=== PATIENT | male | born 1940 | race Caucasian/White ===

== ENCOUNTER 2016-10-29 06:06 | Emergency (ER) | payer OTHER ==
[~2016-10-29] VITALS: Ht 167.6 cm; Wt 116.4 kg
[2016-10-29 06:12] VITALS: PULSE 89; RESP 20; TEMP 98.4; O2SAT 96
[2016-10-29] MEDS ORDERED: ACET-703 PO (06:28)
[2016-10-29] MEDS ORDERED: KETOROLAC TROMETHAMINE 60 MG/2 ML (IM) VIAL IM ONE (06:30)
[2016-10-29] MEDS ORDERED: ORPHENADRINE INJ 60 MG/2 ML AMP IM ONE (06:30)
--- NOTE | 2016-10-29 06:54 | PD ---
HPI Chief Complaint: Back/ Neck Pain or Injury Time Seen by Provider: 06:25 Travel History International Travel<30 days: No Contact w/Intl Traveler<30days: No Traveled to known affect area: No History of Present Illness HPI 76 year-old male presents to the emergency department for complaint of left upper back pain patient states pain is reproducible just at his left inferior scapular region. Patient denies any injury. Patient rates pain as 10 over 10 intensity. Patient states pain awakened him from sleep at 3 AM. Patient reports pain is associated with shortness of breath. Patient denies chest pain. Patient has chronic left shoulder pain and is followed by Dr. Figueroa is his orthopedist. Patient denies any upper extremity or lower extremity numbness tingling or weakness. Patient has had no skin rash. Patient denies fever or chills. No recent long distance travel protracted bedrest her surgical procedure. No history of DVT PE or clotting disorder. Patient does not take blood thinning agent. Patient denies history of CAD hypertension dyslipidemia diabetes or tobaccoism. Patient denies injury or fall. PFSH Past Medical History Narrative Medical High cholesterol pneumonia no tobacco use; nursing notes and medical record reviewed High Cholesterol: Yes Pneumonia: Yes Tetanus Vaccination: > 5 Years Influenza Vaccination: No Past Surgical History Other Surgery: Yes (NASAL SURGERY, LEFT JAW FX REPAIR WITH PLATE: 1975) Social History Alcohol Use: No Tobacco Use: No (QUIT 1985) Substance Use: No Allergies-Medications (Allergen,Severity, Reaction): Coded Allergies: No Known Allergies (Verified , 10/29/16) Reported Meds & Prescriptions Reported Meds & Active Scripts Active Reported Tylenol Extra Strength (Acetaminophen) 500 Mg Tab 1,000 Mg PO Q6H PRN Review of Systems Except as stated in HPI: all other systems reviewed are Neg General / Constitutional: No: Fever, Chills Cardiovascular: No: Chest Pain or Discomfort Respiratory: Positive: Shortness of Breath, Pleuritic Pain Gastrointestinal: No: Nausea, Vomiting, Abdominal Pain Genitourinary: No: Decreased Urinary Output Musculoskeletal: Positive: Pain, No: Myalgias, Arthralgias Skin: No Rash (back) Neurologic: No: Weakness, Paresthesia Psychiatric: No: Anxiety Hematologic/Lymphatic: No: Lymph Node Enlargement Physical Exam Narrative GENERAL: Well-developed well-nourished male in no acute respiratory distress SKIN: Warm and dry. HEAD: Normocephalic. EYES: No scleral icterus. No injection or drainage. NECK: Supple, trachea midline. No JVD or lymphadenopathy. CARDIOVASCULAR: Regular rate and rhythm without murmurs, gallops, or rubs. RESPIRATORY: Breath sounds equal bilaterally. No accessory muscle use. GASTROINTESTINAL: Abdomen soft, non-tender, nondistended. MUSCULOSKELETAL: No cyanosis, or edema. BACK: Tender to palpation along the medial inferior ridge of the left scapula no redness no induration no vesicular rash without obvious deformity. No tenderness to direct palpation along the thoracic or lumbar spine. No CVA tenderness. Data Data Last Documented VS Vital Signs Date Time Temp Pulse Resp B/P Pulse Ox O2 Delivery O2 Flow Rate FiO2 10/29/16 06:52 18 10/29/16 06:12 98.4 89 96 Orders Chest, Single Ap (10/29/16 ) Ketorolac Inj (Toradol Inj) (10/29/16 06:30) Orphenadrine Inj (Norflex Inj) (10/29/16 06:30) Urinalysis - C+S If Indicated (10/29/16 06:25) Complete Blood Count With Diff (10/29/16 06:54) Basic Metabolic Panel (Bmp) (10/29/16 06:54) D-Dimer (10/29/16 06:54) ^ Saline Lock (10/29/16 06:54) Electrocardiogram (10/29/16 ) Troponin I (10/29/16 06:54) MDM Medical Decision Making Medical Screen Exam Complete: Yes Emergency Medical Condition: Yes Medical Record Reviewed: Yes Differential Diagnosis Back pain, atypical chest pain/ACS, PE, pleurisy, musculoskeletal pain Narrative Course Patient reporting marked pain therefore administered Toradol 60 mg IM and Norflex 60 mg IM with imaging of the chest ordered; patient also reported to have CBC basic metabolic panel troponin d-dimer and EKG performed in view of pleuritic back pain associated with shortness of breath and awakened him from sleep at 3 AM. Suspect at least a component of musculoskeletal pain of etiology of patient's presentation however does need further evaluation to evaluate for possible cardiovascular etiology or PE. @0 700 patient's care signed over to oncoming physician Dr. Roberto Bah,[place] MD October 29, 2016 06:54
[2016-10-29 07:20] LABS: AUTOMATED NEUTROPHIL # 3.8 TH/MM3 (1.8-7.7); BASOPHIL % 0.6 % (0.0-2.0); EOSINOPHIL # 0.2 TH/MM3 (0-0.4); EOSINOPHIL % 3.1 % (0.0-4.0); HEMO FLAGS DIFF FINAL; LYMPH % 21.7 % (9.0-44.0); LYMPHOCYTE # 1.2 TH/MM3 (1.0-4.8); MEAN CELL VOLUME 82.2 FL (80.0-100.0); MEAN CORPUSCULAR HEMOGLOBIN 26.9 PG (27.0-34.0); MEAN CORPUSCULAR HGB CONC 32.7 % (32.0-36.0); MONO % 8.8 % (0.0-8.0); NEUT % 65.8 % (16.0-70.0); PLATELET COUNT 270 TH/MM3 (150-450); RED BLOOD COUNT 5.72 MIL/MM3 (4.50-5.90); RED CELL DISTRIBUTION WIDTH 13.5 % (11.6-17.2); WHITE BLOOD COUNT 5.7 TH/MM3 (4.0-11.0)
[2016-10-29 07:26] LABS: CHLORIDE 103 MEQ/L (98-107); POTASSIUM 3.7 MEQ/L (3.5-5.1); SODIUM (NA) 139 MEQ/L (136-145)
--- NOTE | 2016-10-29 07:27 | RADHPO ---
EXAM DATE/TIME: 10/29/2016 07:01 [facility] COMPARISON: No previous studies available for comparison. INDICATIONS : Posterior left side rib pain x a few hours, no known injury. Short of breath. MEDICAL HISTORY : None. SURGICAL HISTORY : None. ENCOUNTER: Initial ACUITY: 1 day PAIN SCORE: 10/10 LOCATION: Left posterior ribs FINDINGS: A single view of the chest demonstrates the lungs to be symmetrically aerated without evidence of mas s, infiltrate or effusion. Minimal basilar atelectasis. The cardiomediastinal contours are unremarka ble. Osseous structures are intact. CONCLUSION: 1. Minimal basilar atelectasis. Angus Maldonado MD on October 29, 2016 at 7:23 Board Certified Radiologist. This report was verified electronically.
[2016-10-29 07:29] LABS: ANION GAP 9 MEQ/L (5-15); BICARBONATE 26.7 MEQ/L (21.0-32.0)
[2016-10-29 07:30] LABS: BLOOD UREA NITROGEN 20 MG/DL (7-18)
[2016-10-29 07:33] LABS: GLOMERULAR FILTRATION RATE 90 ML/MIN (>89)
--- NOTE | 2016-10-29 08:26 | PD ---
Physical Exam Date Seen by Provider: October 29, 2016 Time Seen by Provider: 08:24 Narrative 76-year-old male came to the emergency room with history of left subscapular pain radiating to his front of the chest. Pain sounds pleuritic in nature. Woke patient up from sleep. Patient was seen by the previous ER physician. Please refer to her history and physical for additional details. Sign out was to follow-up on the blood test results. As per the previous ER physician her suspicion for coronary artery disease was less. Patient has history of arthritis and she thought this could be related to the arthritis of the blood work came back negative. However there was a d-dimer ordered which is elevated. Hence patient is currently waiting to get a pulmonary angiogram. I have updated about this progress to the patient. Waiting for the CT to be done and resulted. Patient says that since he received morphine he is able to breathe little better. Data Data Last Documented VS Vital Signs Date Time Temp Pulse Resp B/P Pulse Ox O2 Delivery O2 Flow Rate FiO2 10/29/16 09:43 70 16 158/90 96 Orders Chest, Single Ap (10/29/16 ) Ketorolac Inj (Toradol Inj) (10/29/16 06:30) Orphenadrine Inj (Norflex Inj) (10/29/16 06:30) Complete Blood Count With Diff (10/29/16 06:54) Basic Metabolic Panel (Bmp) (10/29/16 06:54) D-Dimer (10/29/16 06:54) ^ Saline Lock (10/29/16 06:54) Electrocardiogram (10/29/16 ) Troponin I (10/29/16 06:54) Ct Pulmonary Angiogram (10/29/16 ) Iohexol 350 Inj (Omnipaque 350 Inj) (10/29/16 08:44) Levofloxacin (Levaquin) (10/29/16 09:30) Labs Laboratory Tests Test 10/29/16 07:08 White Blood Count 5.7 TH/MM3 Red Blood Count 5.72 MIL/MM3 Hemoglobin 15.4 GM/DL Hematocrit 47.0 % Mean Corpuscular Volume 82.2 FL Mean Corpuscular Hemoglobin 26.9 PG Mean Corpuscular Hemoglobin 32.7 % Concent Red Cell Distribution Width 13.5 % Platelet Count 270 TH/MM3 Mean Platelet Volume 7.2 FL Neutrophils (%) (Auto) 65.8 % Lymphocytes (%) (Auto) 21.7 % Monocytes (%) (Auto) 8.8 % Eosinophils (%) (Auto) 3.1 % Basophils (%) (Auto) 0.6 % Neutrophils # (Auto) 3.8 TH/MM3 Lymphocytes # (Auto) 1.2 TH/MM3 Monocytes # (Auto) 0.5 TH/MM3 Eosinophils # (Auto) 0.2 TH/MM3 Basophils # (Auto) 0.0 TH/MM3 CBC Comment DIFF FINAL Differential Comment D-Dimer Quantitative (PE/DVT) 0.73 MG/L FEU Sodium Level 139 MEQ/L Potassium Level 3.7 MEQ/L Chloride Level 103 MEQ/L Carbon Dioxide Level 26.7 MEQ/L Anion Gap 9 MEQ/L Blood Urea Nitrogen 20 MG/DL Creatinine 0.83 MG/DL Estimat Glomerular Filtration 90 ML/MIN Rate Random Glucose 101 MG/DL Calcium Level 8.7 MG/DL Troponin I LESS THAN 0.02 NG/ML MDM Supervised Visit with AISHA: No Narrative Course 9:[address] pulmonary angiogram does not show any PE. There is bilateral scattered nodules however. Patient will require a repeat CAT scan in 3-6 months. There is a groundglass opacity radiologist mentioned in the angular lobe which could coincide with his pain. I have given him a dose of Levaquin and will treated as a pneumonia. Patient will be discharged home. Diagnosis Primary Impression: Pneumonia Qualified Code: J18.1 - Pneumonia of left lower lobe due to infectious organism Additional Impressions: Pleuritic chest pain Lung nodules Referrals: Primary Care Physician 2 days Additional Instruction: Vasotec 10 to the ER if the condition worsens or any other new concerns. Take the medication as per the prescription direction. You could take Motrin/ ibuprofen/Advil/Aleve for your pain. Follow-up with primary care in couple days. The CAT scan showed multiple lung nodules. He would require a repeat CAT scan in 3-6 months. Please have your primary care order one as an outpatient. Med/Other Pt SpecificInfo: Prescription(s) given Scripts Levofloxacin (Levaquin)500 Mg Uvr680 Mg PO DAILY #10 TAB Ref 0 Prov:Graciela Mejia MD 10/29/16 Disposition: 01 DISCHARGE HOME Condition: Stable Graciela Mejia MD October 29, 2016 08:26 Graciela Mejia MD October 29, 2016 08:26
[2016-10-29] MEDS ORDERED: IOHEXOL 350 MG/ML 10 ML VIAL (for RAD DIAG) IV ONE (08:44)
--- NOTE | 2016-10-29 09:16 | RADHPO ---
EXAM DATE/TIME: 10/29/2016 08:22 [facility] COMPARISON: No previous studies available for comparison. INDICATIONS : Patient complains of SOB and left upper back pain. IV CONTRAST: 46 cc Omnipaque 350 (iohexol) IV Injection Site: Rt AC Lot: [id number] Exp Date: Jul 2019 Lot: Exp Date : RADIATION DOSE: 21.81 CTDIvol (mGy) MEDICAL HISTORY : Hypercholesterolemia. SURGICAL HISTORY : None. ENCOUNTER: Initial ACUITY: 1 day PAIN SCALE: 10/10 LOCATION: Left upper chest TECHNIQUE: Volumetric scanning of the chest was performed using a pulmonary embolism protocol MIP images were re constructed. Using automated exposure control and adjustment of the mA and/or kV according to patien t size, radiation dose was kept as low as reasonably achievable to obtain optimal diagnostic quality images. FINDINGS: Breathing motion degraded. PULMONARY ARTERIES: No filling defects are seen in the pulmonary arteries through the segmental level. LUNGS: A total of 5 nodular densities are observed. The largest involves the posterior medial left upper lob e adjacent to the major fissure. This measures 9 mm. The remaining nodules are 4-5 mm in diameter. 2 are located within the right upper lobe wall and within the right middle lobe, and one within the divya gula. Dependent atelectasis is seen bilaterally. Groundglass opacities are seen within the lingula an d left lower lobe. PLEURAE: There is no pleural thickening or pleural effusion. MEDIASTINUM: The heart is mildly enlarged. Coronary artery and aortic atherosclerotic calcifications are seen. Pul monary arteries are normal in caliber. No adenopathy. MUSCULOSKELETAL: Within normal limits for patient age. MISCELLANEOUS: The visualized upper abdominal organs demonstrate no acute abnormality. CONCLUSION: 1. No pulmonary emboli. 2. Multiple bilateral pulmonary nodules. The largest measures 9 mm within the left upper lobe. These are nonspecific in their CT appearance. Current guidelines suggest a repeat CT [facility] 3. Groundglass opacities involving the lingula and left lower lobe. This is nonspecific. This could r elate to pulmonary edema but infectious etiology could have a similar appearance. Ag Combs Jr., MD on October 29, 2016 at 9:05 Board Certified Radiologist. This report was verified electronically.
[2016-10-29] MEDS ORDERED: LEVOFLOXACIN 500 MG TAB PO ONE (09:30)
[2016-10-29] MEDS ORDERED: LEVA500T PO (09:33)
[2016-10-29 09:43] VITALS: BP 158/90
--- NOTE | 2016-10-29 11:46 | EKG ---
Date Performed: 10/29/2016 Time Performed: 07:05:32 PTAGE: 76 years EKG: Sinus rhythm Normal ECG PREVIOUS TRACING : 05/15/2005 07.43 No significant change from previous tracing noted. DOCTOR: Kris Mcguire Interpretating Date/Time 10/29/2016 11:45:28
== END 2016-10-29 09:55 | disposition home or self-care (01) ==
LOC: PHED 06:06
DX: J18.1 Lobar pneumonia, unspecified organism (principal); R91.8 Other nonspecific abnormal finding of lung field; E78.00 Pure hypercholesterolemia, unspecified
CPT/HCPCS: 71010; 71275; 80048; 84484; 85025; 85379; 93005; 96372; 99285; J1885; J2360; Q9967

== ENCOUNTER 2017-07-29 13:37 | Day surgery (SDC) | payer OTHER ==
[~2017-07-29 13:37] MED LIST: ACET-703 PO; LEVA500T PO
[2017-07-29] MEDS ORDERED: IOHEXOL 350 MG/ML 100 ML BTL (for Cath Lab) OTHER ONE (13:38)
[2017-07-29 14:08] VITALS: BP 128/64; PULSE 69; RESP 22; TEMP 98.2; O2SAT 94
[2017-07-29] MEDS ORDERED: ASPI325T27 PO (14:15)
[2017-07-29] MEDS ORDERED: TAMS0.4C4 (14:15)
[2017-07-29] MEDS ORDERED: METO50TA PO (14:15)
[2017-07-29] MEDS ORDERED: ISOS10TA PO (14:15)
[2017-07-29 14:35] LABS: AUTOMATED NEUTROPHIL # 4.1 TH/MM3 (1.8-7.7); BASOPHIL # 0.1 TH/MM3 (0-0.2); EOSINOPHIL # 0.1 TH/MM3 (0-0.4); EOSINOPHIL % 1.8 % (0.0-4.0); HEMATOCRIT 44.9 % (39.0-51.0); HEMOGLOBIN 15.3 GM/DL (13.0-17.0); LYMPH % 31.6 % (9.0-44.0); LYMPHOCYTE # 2.3 TH/MM3 (1.0-4.8); MEAN CELL VOLUME 80.8 FL (80.0-100.0); MEAN CORPUSCULAR HEMOGLOBIN 27.6 PG (27.0-34.0); MEAN CORPUSCULAR HGB CONC 34.2 % (32.0-36.0); MEAN PLATELET VOLUME 7.5 FL (7.0-11.0); MONO % 8.1 % (0.0-8.0); MONOCYTE # 0.6 TH/MM3 (0-0.9); NEUT % 57.5 % (16.0-70.0); PLATELET COUNT 325 TH/MM3 (150-450); RED BLOOD COUNT 5.56 MIL/MM3 (4.50-5.90); WHITE BLOOD COUNT 7.2 TH/MM3 (4.0-11.0)
[2017-07-29 14:44] LABS: PROTHROMBIN TIME - PATIENT 10.2 SEC (9.8-11.6)
[2017-07-29 15:19] LABS: BICARBONATE 24.3 MEQ/L (21.0-32.0); CALCIUM 8.6 MG/DL (8.5-10.1); CREATININE 0.93 MG/DL (0.60-1.30)
[2017-07-29] MEDS ORDERED: HEPARIN-NS/PF INJ 1,000 ML ONE (15:56)
[2017-07-29] MEDS ORDERED: HEPARIN SODIUM - IV 10,000 UNITS/10 ML VIAL ONE (15:56)
[2017-07-29] MEDS ORDERED: VERAPAMIL HCL 5 MG/2 ML VIAL ONE (15:56)
[2017-07-29] MEDS ORDERED: NITROGLYCERIN INJ 5 ML ONE (15:56)
[2017-07-29] MEDS ORDERED: MIDAZOLAM HCL 2 MG/2 ML VIAL ONE ×2 (16:08→16:44)
[2017-07-29] MEDS ORDERED: TIROFIBAN INFUSION INJ 250 ML IV ONE (16:38)
[2017-07-29] MEDS ORDERED: TICAGRELOR 90 MG TAB PO ONE (16:53)
[2017-07-29] MEDS ORDERED: SODIUM CHLOR 0.9% 1000 ML INJ 1,000 ML IV SCH (17:01)
[2017-07-29] MEDS ORDERED: TIROFIBAN INFUSION INJ 250 ML IV SCH (17:01)
--- NOTE | 2017-07-29 17:06 | CATHPROC ---
fishfishme HIS Report Study Information Study Number Admission Scheduled Start Study Start [id number] Jul 29 2017 1:37PM 07/29/2017 Jul 29 2017 3:54PM Study Type [place] Service Left/Possible PCI Cardiac Catheterization Admit Source Facility Department Other [facility] - Respiratory Therapist Physician and Clinical Staff Initial Kris Mendes Sound Truck Operator Yaya RN, Zander Sound Truck OperatorBalwinder SinghRN Recorder Sadie Nowak,OIL WELL SERVICE UNIT OPERATOR TECH2 Scrub Genet Marie,RT(R) Procedures Performed Procedure Location (Site) Vessel Name Coronary Angiograms LCA Left Coronary Coronary Angiograms RCA Right Coronary Drug Eluting Inflatio CIRC Mid CIRC LV Gram-hand inj. LV LV Ventricle PTCA CIRC Mid CIRC Wire insertion Radial (right) Radial Art. Equipment Time Outside Industrial Sales Representative Description Size Mfg Part Number Used/Scraped [id number] 16:41 [employer] WIRE, ASAHI PROWATER 180CM 180CM Used *[id number] TRANSDUCER, TRUWAVE [id number] 16:30 GARCIA PAVON * Used W/STOCKCOCK *[id number] *[id number] *[id number] 16:30 MALLINCKRODT SYRINGE, ANGIOMAT 150ML 150ML *[id number] Used 2S NoiseFree CONCEPT DRAPE, RADIAL FEMORAL FULL 16:30 * [id number] *[id number] Used DEVELOPMENT BODY [id number] 16:30 [employer] INDUSTRIES PACK, CCL CUSTOM * Used *[id number] 16:30 Brainlike SUPPORT, ARTERIAL ADULT 75069 *[id number] Used [id number] 16:30 [employer] PACER PEN, SKIN DUAL W/ RULER * Used *[id number] 16:44 MEDTRONIC BALLOON, 3.0 X 15MM EUPHORA 15MM Used *[id number] 16:47 MEDTRONIC STENT, 3.5 15MM ANGELINA 3.5 15MM Used *[id number] 16:44 Mebelrama 30 JOEY INDEFLATOR Used *[id number] BAND, RADIAL COMPRESSION TR [id number] 16:55 [employer] MEDICAL 29CM Used LARGE 29 *[id number] SHEATH, FR6 RADIAL PRELUDE 16:30 Mebelrama FR 6 [id number] Used EASE 11CM [id number] 16:30 Mebelrama WIRE, EXCHANGE 260CM 3MMJ 260CM Used *[id number] 16:30 NAMIC MANIFOLD, 4 PORT * Used *[id number] 16:30 NYCOMED OMNIPAQUE, 350 MG, 150ML 150ML [id number] Used [id number] 16:30 [employer] BLANKET,WARM AIR CCL * Used *[id number] CATHETER, FR5 OPTITORQUE [id number] 16:31 TERUMO [employer]ICAL FR 5 Used RADIAL TIG 4.0 *[id number] Equipment Model, Serial, Lot Number and Expiration Data Description Model Number Serial Number Lot Number Expiration Date STENT, 3.5 15MM ANGELINA [id number] 12-24-2018 History: Allergies Allergy Reaction No Known Allergies History: Risk Factors Family History of Hypertension Dyslipidemia Previous SD Previous Heart Failure Premature CAD No No Yes No No Prior Valve Prior PCI Prior CABG Surgery No No No Cerebrovascular Peripheral Artery Chronic Lung On Dialysis Diabetes Disease Disease Disease No No No No No History: Stress Tests Stress or Imaging Studies Performed No History: Other Current Smoker Method Quit Packs a Day Years Used Pack Years No Cigarettes 30 Years Ago 1 25 25 Labs Hgb (g/dl) Hct (%) RBC (MIL/MM3) WBC (l/cumm) Platelets (thousands) 11.60-17.00 35.00-51.00 4.00-5.90 4.00-11.00 150.00-450.00 15.3 44.9 5.5 7.2 325 Glucose (mg/dl) BUN (mg/dl) Creatinine (mg/dl) BUN:Creatinine (1:x) 74.00-106.00 7.00-18.00 0.50-1.30 10.00-20.00 94 17 0.9 18.9 Na (meq/l) K (meq/l) Cl (meq/l) CO2 (mmol/L) Ca (mg/dl) 136.00-145.00 3.50-5.10 98.00-107.00 21.00-32.00 8.50-10.10 136 4.4 104 24.3 8.6 PT (sec) PTT (sec) INR (PTT:PT) 9.80-11.60 24.30-30.10 0.90-1.10 10.2 29.9 1 CPK-MB (ng/ML) 0.50-3.60 Not Drawn Medication Medication Total Dose (Bolus/Oral) Medication Total Dosage/Unit 1% XYLOCAINE 10 mL AGGRASTAT BOLUS 56 mL BRILINTA 180 mg FENTANYL 50 mcg HEPARIN 8000 units RADIAL COCKTAIL 5 mL (Bolus) VERSED 4 mg Medications (Bolus/Oral) Medication Time Given Dosage/Unit Administered By Reason VERSED 07/29/2017 4:24:07 PM 2 mg Balwinder Lou 2 mg VERSED given in lab by Balwinder Lou RN in Left Hand via Peripheral IV. Ordered by Kris Mcguire . FENTANYL 07/29/2017 4:25:22 PM 50 mcg Balwinder Lou 50 mcg FENTANYL given in lab by Balwinder Lou RN in Left Hand via Peripheral IV. Ordered by Mulugeta Mcguire. 1% XYLOCAINE 07/29/2017 4:26:56 PM 10 mL Kris Mcguire 10 mL 1% XYLOCAINE given in lab by Kris Mcguire in Right Radial via Subcutaneous. Ordered by Mulugeta Mcguire. Ntg 200mcg Verapamil 2.5mg Heparin RADIAL COCKTAIL 07/29/2017 4:29:14 PM 5 mL (Bolus) Kris Mcguire 2500U 5 mL (Bolus) RADIAL COCKTAIL given in lab by Kris Mcguire in Right Radial via Radial. Using [Solution Name]. Ordered by Kris Mcguire. Reason: Ntg 200mcg Verapamil 2.5mg Heparin 2500U. HEPARIN 07/29/2017 4:37:29 PM 8000 units Balwinder Lou 8000 units HEPARIN given in lab by Balwinder Lou RN in Left Hand via Peripheral IV. Ordered by Kris Mcguire. AGGRASTAT BOLUS 07/29/2017 4:39:49 PM 56 mL Balwinder Lou 56 mL AGGRASTAT BOLUS given in lab by Balwinder Lou RN in Left Hand via Peripheral IV. Ordered by Kris Agosto. VERSED 07/29/2017 4:46:11 PM 2 mg Balwinder Lou 2 mg VERSED given in lab by Balwinder Lou RN in Left Hand via Peripheral IV. Ordered by Kris Mcguire . BRILINTA 07/29/2017 5:00:29 PM 180 mg Balwinder Lou 180 mg BRILINTA given in lab by Balwinder Lou RN via Oral. Ordered by Kris Mcguire. Medication (Drip) Medication Time Given Dosage/Unit Concentration/Unit Diluent (ml) Solution AGGRASTAT DRIP 07/29/2017 4:47:34 PM 0.15 mcg/kg/min 12.5 mg 250 NaCl .9 0.15 mcg/kg/min AGGRASTAT DRIP given in lab by Balwinder Lou, RN in Left Hand via Peripheral IV. Pump /Drip Flow = 20.38 ml/hr using NaCl .9 with a concentration of 12.5 mg in 250 ml. Ordered by Kris Mcguire. IV Solutions 07/29/2017 3:56:58 PM 50 mL (IV) NaCl .9 Patient arrived on IV Solutions in Left Hand via Peripheral IV. Pump/Drip Flow using NaCl .9. Initial Case Assessment Cardiovascular HR Rhythm NIBP Chest Pain 65 sr 120/75 0 Edema Present Skin color Skin None Normal Warm Dry Circulatory - Right Pulses Dorsalis Pedis Femoral Radial 2 2 2 Scale (0,1,2,3,4,d) Circulatory - Left Pulses Dorsalis Pedis Femoral Radial 1 Scale (0,1,2,3,4,d) Neurological State Oriented to time-place- Alert Moves all extremities person Respiration - General Respiration Rate SpO2 (%) (B/min) 12 95 Final Case Assessment Cardiovascular HR Rhythm NIBP Chest Pain 69 sr 113/65 0 Circulatory - Right Pulses Dorsalis Pedis Femoral Radial 2 2 2 Scale (0,1,2,3,4,d) Scale (0,1,2,3,4,d) Neurological State Oriented to time-place- Alert person Respiration - General Respiration Rate SpO2 (%) (B/min) 18 93 Chronological Log Time Study Chronological Log 15:54:31 Patient arrived via Bed. 15:54:36 Patient Name, D.O.B, / Armband Verified By R.N. 15:56:41 Consent signed by the physician and the patient and verified by the Respiratory Therapist staff. 15:56:42 Pre-op and post- op instructions given; patient acknowledges understanding of instructions. 15:56:42 Verbal Stimulation=2 Physical Stimulation=2 Airway=2 Respiration=2 TOTAL=8. (0=absent, 1=li mited, 2=present) 15:56:44 Presedation assessment performed by Respiratory Therapist RN. 15:56:50 Allens test performed on the right radial and ulnar artery. 15:56:53 Patient has been NPO for More than 6Hrs. 15:56:54 Skin Breakdown-rash noted in groin area 15:56:55 Teo Prominences Protected 15:56:57 A # 20 IV was noted in the Hand (left). Grade = 0 15:56:58 Patient arrived on IV Solutions in Left Hand via Peripheral IV. Pump/Drip Flow using NaCl . 9. 15:56:59 History and physical on the chart or being dictated. Assessment: Initial Case, HR=65 BPM, Rhythm=sr, EXXR=537/75 mmhg, Chest Pain=0, Edema=None, Col or=Normal, Skin = Warm, Dry Right Pulses: Wang Ped=2, Femoral=2, Radial=2 16:03:06 Left Pulses: Wang Ped=1 Neurological: State=Alert, Ox3, MARSHALL Respiration: Resp=12 B/min, SpO2=95 % Vitals capture started with the following parameters, Patient=Adult, Interval=5 min, Initial Pr xkutwx=081 mmHg, 16:03:28 Deflation Rate=5 mmHg, Cuff placed on Left Arm 16:04:07 HR=65 bpm, MYBR=626/75 mmhg, SpO2=95.0 %, Resp=20 B/min 16:08:28 Reference ECG taken 16:09:08 HR=64 bpm, QFWV=889/71 mmhg, SpO2=94 %, Resp=21 B/min, Pain=0, Torres=2 16:14:07 HR=65 bpm, YHAK=774/74 mmhg, SpO2=97.0 %, Resp=12 B/min 16:15:18 Right groin and right wrist prepped with 2% chlorhexidine, and draped after a 3 min. waitin g time. 16:19:08 HR=67 bpm, SSJM=753/74 mmhg, SpO2=96.0 %, Resp=19 B/min 16:19:45 Pressure channel 1 zeroed. 16:20:17 paged 16:21:11 responded 16:23:36 arrived. 16:24:07 2 mg VERSED given in lab by Balwinder Lou, RN in Left Hand via Peripheral IV. Ordered by Kris Agosto. 16:24:13 HR=68 bpm, BXQO=877/74 mmhg, SpO2=93.0 %, Resp=20 B/min 16:25:22 50 mcg FENTANYL given in lab by Balwinder Lou, RN in Left Hand via Peripheral IV. Ordered b y Kris Mcguire. Time Out. Correct patient, correct procedure, correct physician, power injector not loaded with contrast with surgical 16:26:37 team present. Time Out Concurred by MD and individual staff in procedure. 16:26:56 Case Start 16::56 10 mL 1% XYLOCAINE given in lab by Kris Mcguire in Right Radial via Subcutaneous. Ordered b y Kris Mcguire. 16:27:44 Access site was Radial Artery. Right A SHEATH, FR6 RADIAL PRELUDE EASE 11CM FR 6 was advanced into the Radial (right) using the Perc utaneous 16:28:46 technique. 16:29:10 HR=69 bpm, JLHF=707/72 mmhg, SpO2=93.0 %, Resp=20 B/min 5 mL (Bolus) RADIAL COCKTAIL given in lab by Kris Mcguire in Right Radial via Radial. Using [So lution Name]. Ordered 16:29:14 by Kris Mcguire. Reason: Ntg 200mcg Verapamil 2.5mg Heparin 2500U. Recorded Pressure: Ao, HR=70, Condition=Condition 1 16:31:39 (Aorta) Ao 105/60/79 16:31:55 The LCA was injected and visualized at various angles. OMNIPAQUE, 350 MG, 150ML 150ML used . 16:34:13 HR=76 bpm, PDBR=259/64 mmhg, SpO2=89 %, Resp=17 B/min 16:34:51 The RCA was injected and visualized at various angles. OMNIPAQUE, 350 MG, 150ML 150ML used . After removing the current catheter a XB 3.5 GUIDE CATHETER FR 6 was advanced over a WIRE, EXCH OSEI 260CM 16:35:16 3MMJ 260CM. 16:37:29 8000 units HEPARIN given in lab by Balwinder Lou, RN in Left Hand via Peripheral IV. Ordere d by Kris Mcguire. 16:38:58 The LCA was injected and visualized at various angles. OMNIPAQUE, 350 MG, 150ML 150ML used . 16:39:10 HR=70 bpm, SFDD=221/63 mmhg, SpO2=92.0 %, Resp=18 B/min 16:39:20 A WIRE, ASAHI PROWATER 180CM 180CM was inserted via Radial (right). 16:39:49 56 mL AGGRASTAT BOLUS given in lab by Balwinder Lou RN in Left Hand via Peripheral IV. Ord ered by Kris Mcguire. 16:43:13 Activated Clotting Time Drawn 16:43:15 A BALLOON, 3.0 X 15MM EUPHORA 15MM was inserted over WIRE, ASAHI PROWATER 180CM 180CM via t he CIRC Mid. 16:44:11 HR=66 bpm, HDRZ=800/68 mmhg, SpO2=93 %, Resp=18 B/min A BALLOON, 3.0 X 15MM EUPHORA 15MM over a WIRE, ASAHI PROWATER 180CM 180CM in the CIRC Mid was inflated 16:44:17 using a 30 JOEY INDEFLATOR at 4 joey for 20 sec. A BALLOON, 3.0 X 15MM EUPHORA 15MM over a WIRE, ASAHI PROWATER 180CM 180CM in the CIRC Mid was inflated 16:44:52 using a 30 JOEY INDEFLATOR at 13 joey for 30 sec. 16:45:37 Balloon Removed. A STENT, 3.5 15MM ANGELINA 3.5 15MM was advanced through a XB 3.5 GUIDE CATHETER FR 6 over a WIRE, ASAHI 16:45:56 PROWATER 180CM 180CM. 16:46:11 2 mg VERSED given in lab by Balwinder Lou RN in Left Hand via Peripheral IV. Ordered by Kris Agosto. 0.15 mcg/kg/min AGGRASTAT DRIP given in lab by Balwinder Lou RN in Left Hand via Peripheral IV . Pump/Drip Flow = 16:47:34 20.38 ml/hr using NaCl .9 with a concentration of 12.5 mg in 250 ml. Ordered by Kris Mcguire. A STENT, 3.5 15MM ANGELINA 3.5 15MM was deployed using a 30 JOEY INDEFLATOR at 14 atmospheres for 30 seconds in 16:47:48 the CIRC Mid. 16:48:01 Delivery device removed 16:49:12 HR=70 bpm, XHPX=818/63 mmhg, SpO2=93.0 %, Resp=18 B/min 16:49:30 Wire removed After removing the current catheter a MPA-2 INFINITI CATHETER FR 6 was advanced over a WIRE, EX CHANGE 260CM 16:50:06 3MMJ 260CM. Recorded Pressure: LV, HR=73, Condition=Condition 1 16:52:02 (Left Ventricle) LV 116/8/21 16:52:23 The LV was manually injected with 10 cc's and visualized. OMNIPAQUE, 350 MG, 150ML 150ML us ed. Recorded Pressure: LV, Ao, HR=68, Condition=Condition 1 16:52:30 (Left Ventricle) LV 107/6/26, (Aorta) Ao 110/56/78 16:53:13 Catheter was removed 16:53:19 Case End 16:54:14 HR=69 bpm, HLXX=131/65 mmhg, SpO2=93.0 %, Resp=18 B/min Radial Compression Device Used. 16 mLs of air placed in BAND, RADIAL COMPRESSION TR LARGE 29 29 CM. Affected 16:55:07 hand 96 % O2 saturation. 16:57:12 ACT (Normal Range 90-180) = 311 16:59:23 Vitals capture stopped. 17:00:29 180 mg BRILINTA given in lab by Balwinder Lou, RN via Oral. Ordered by Kris Mcguire. Assessment: Final Case, HR=69 BPM, Rhythm=sr, KJHU=780/65 mmhg, Chest Pain=0 Right Pulses: Wang Ped=2, Femoral=2, Radial=2 17:06:38 Neurological: State=Alert, Ox3 Respiration: Resp=18 B/min, SpO2=93 % 17:07:33 Patient moved to bed 17:09:22 Patient transported to DOCU. End Study - Contrast Media Used In Study Contrast Total Opened (mL) Total Used (mL) Total Wasted (mL) Omnipaque 80 80 0 End Study - Maximum Contrast Load Max Contrast Load (mL) 628.8 End Study - Radiation Exposure Fluoro Time (minutes) 6.8 End Study - Sheaths Sheaths Pulled By Sheath Hold Time (min) Genet Marie End Study - Patient Disposition Complications Transferred To Interventional Outcome No Telemetry Bed successful
[2017-07-29] MEDS ORDERED: MISC INFORMATION XX ONE (17:15)
[2017-07-29] MEDS ORDERED: TEMAZEPAM 15 MG CAP PO PRN (17:15)
--- NOTE | 2017-07-29 18:28 | MA ---
cc: KRIS TRAN M.D. DATE 07/29/2017 PROCEDURE Left heart catheterization, selective coronary angiography, left ventriculography, angioplasty and stent of the proximal left circumflex. PROCEDURE NOTE The patient was brought to the cardiac catheterization laboratory in a fasting state after having signed informed consent. The right radial region was prepped and draped as per policy and anesthetized with 1% lidocaine. Arterial access was obtained via the right radial artery and a 6-Burundian sheath placed. Coronary arteriography was performed using a tiger catheter. Left ventriculography was done using a multipurpose catheter. Percutaneous coronary intervention was done as described below. There were no apparent immediate complications. A radial artery compression band was applied to his right wrist at the end of the case to achieve good hemostasis. HEMODYNAMIC RESULTS Left ventricle 118 with an end-diastolic pressure of 16. Aorta 120/70 with a mean of 91. There was no significant transvalvular aortic gradient on pullback of the pigtail catheter. CORONARY ARTERIOGRAPHY The left main may have up to 15% ostial stenosis. The proximal LAD has somewhat eccentric up to 30% stenosis. The mid LAD has up to 10% stenosis. The distal LAD has minimal luminal irregularities. There are two diagonals which arise from the proximal LAD in close succession. The larger first diagonal has minimal luminal irregularities. A small caliber second diagonal has up to 70% proximal stenosis. The left circumflex is a large dominant vessel with slightly hazy up to 95-99% proximal stenosis. A very small first obtuse marginal arising from the proximal left circumflex has 70% ostial stenosis. A medium-sized second obtuse marginal has minimal disease. The right coronary artery is a small nondominant vessel with minimal luminal irregularities. LEFT VENTRICULOGRAPHY Contrast injection of the left ventricle reveals mild inferior hypokinesis. Ejection fraction is estimated at 50%. PERCUTANEOUS CORONARY INTERVENTION DESCRIPTION Aggrastat was given as per protocol. Adequate heparin was given during the procedure to achieve an ACT of 311 seconds. Using a 6-Burundian XB 3.5 guiding catheter the ostium of the left main was re-engaged. Using a 0.014 Prowater guidewire the proximal left circumflex stenosis was crossed without difficulty and the tip of the wire positioned distally. Predilation was done using a 3.0 Euphora balloon catheter. Stenting was done using a 3.5 x 15 mm Resolute [place] stent which was deployed at 14-15 atmospheres for 30 seconds. Final angiography shows good results with reduction of the initial stenosis to 0% residual with no evidence for dissection or distal embolization. The patient tolerated the procedure well. He did not develop angina with balloon inflations. CONCLUSIONS 1. Severe proximal left circumflex disease now status post angioplasty and stent of this region. 2. Severe disease in a small caliber second diagonal and tiny 1st obtuse marginal. 3. Left dominant system. 4. Low normal left ventricular systolic function with ejection fraction estimated at 50% with possible mild inferior hypokinesis. Kris Tran MD [facility]/KK /5:08 PM /6:04 PM MTDD
[2017-07-29 18:31] VITALS: BP 138/79; PULSE 74; RESP 20; TEMP 98.4; O2SAT 95
[2017-07-29] MEDS ORDERED: ASPIRIN 81 MG CHEW TAB PO ONE (20:15)
[2017-07-29 20:45] VITALS: BP 137/69; PULSE 80; RESP 22; TEMP 98.7; O2SAT 96
[2017-07-29] MEDS ORDERED: TAMSULOSIN HCL 0.4 MG CAP PO SCH (21:00)
[2017-07-29] MEDS ORDERED: ATORVASTATIN 40 MG TAB PO SCH (21:00)
[2017-07-29] MEDS ORDERED: CARVEDILOL 3.125 MG TAB PO SCH (21:00)
[2017-07-29] MEDS: TICAGRELOR 90 MG TAB PO SCH (22:36)
[2017-07-29] MEDS: METOPROLOL TARTRATE 50 MG TAB PO SCH (22:36)
[2017-07-30] VITALS (8 sets, daily range): BP systolic 146–156; BP diastolic 79–94; PULSE 64–82; RESP 20; TEMP 97.9–98.4; O2SAT 97–99
[2017-07-30 06:40] LABS: AUTOMATED NEUTROPHIL # 5.2 TH/MM3 (1.8-7.7); BASOPHIL # 0.1 TH/MM3 (0-0.2); BASOPHIL % 0.8 % (0.0-2.0); EOSINOPHIL # 0.1 TH/MM3 (0-0.4); EOSINOPHIL % 1.4 % (0.0-4.0); HEMATOCRIT 44.2 % (39.0-51.0); HEMOGLOBIN 15.3 GM/DL (13.0-17.0); LYMPH % 22.8 % (9.0-44.0); LYMPHOCYTE # 1.8 TH/MM3 (1.0-4.8); MEAN CELL VOLUME 81.1 FL (80.0-100.0); MEAN CORPUSCULAR HGB CONC 34.5 % (32.0-36.0); MEAN PLATELET VOLUME 7.4 FL (7.0-11.0); MONO % 8.8 % (0.0-8.0); MONOCYTE # 0.7 TH/MM3 (0-0.9); NEUT % 66.2 % (16.0-70.0); PLATELET COUNT 306 TH/MM3 (150-450); RED BLOOD COUNT 5.45 MIL/MM3 (4.50-5.90); RED CELL DISTRIBUTION WIDTH 13.9 % (11.6-17.2); WHITE BLOOD COUNT 7.8 TH/MM3 (4.0-11.0)
[2017-07-30 07:01] LABS: BICARBONATE 24.3 MEQ/L (21.0-32.0); CREATININE 0.89 MG/DL (0.60-1.30)
[2017-07-30 07:03] LABS: CHOLESTEROL/ HDL RATIO 5.37 RATIO; HDL CHOLESTEROL 37.6 MG/DL (40.0-60.0)
[2017-07-30] MEDS ORDERED: ASPIRIN 81 MG CHEW TAB PO SCH (09:00)
[2017-07-30] MEDS: TICAGRELOR 90 MG TAB PO SCH (09:02)
[2017-07-30] MEDS: METOPROLOL TARTRATE 50 MG TAB PO SCH (09:02)
--- NOTE | 2017-07-30 09:33 | EKG ---
Date Performed: 07/29/2017 Time Performed: 14:18:22 PTAGE: 77 years EKG: Sinus rhythm with borderline 1st degree A-V block. Possible inferior infarct - age undetermined Lateral T wave ch anges may be due to myocardial ischemia Abnormal ECG PREVIOUS TRACING : 10/29/2016 07.05 Compared to the prior study, T-wave inversions in the infer olateral leads are new. DOCTOR: Jose Cruz Laboy Interpretating Date/Time 07/30/2017 09:31:49
[2017-07-30] MEDS ORDERED: BRIL90TA PO (10:52)
[2017-07-30] MEDS ORDERED: ASPI81 PO (10:52)
[2017-07-30] MEDS ORDERED: ATOR40TA16 PO (10:52)
[2017-07-30] MEDS ORDERED: METO50TA PO (10:52)
--- NOTE | 2017-07-30 10:56 | PD.CARD.PN ---
Subjective Subjective Remarks Denies angina, dyspnea, dizziness, right upper extremity pain. Slept very poorly. Objective Medications Item Value Date Time Aspirin 81 mg 07/30/17 0900 (Aspirin Chew) DAILY/PO 07/30/17 09 Ticagrelor 90 mg 07/29/172099 (Brilinta) BID/PO 07/30/17901 Atorvastatin 40 mg 07/29/17 2100 Calcium HS/PO 07/29/17 2236 (Lipitor) Metoprolol 50 mg 07/29/17 2100 Tartrate BID/PO 07/30/17 09 (Lopressor) Tirofiban/Sodium 250 ml @ 20.34 mls/hr 07/29/17 1701 Chloride .T19Q55G/IV 07/30/17 0225 Current Medications Medications (Trade) Dose Ordered Sig/Waldo Route Start Time Stop Time Status Last Admin (Restoril) 15 mg HS PRN PO 07/29/17 17:15 (Aspirin Chew) 81 mg DAILY PO 07/30/17 09:00 07/30/17 09:02 (Brilinta) 90 mg BID PO 07/29/17 21:00 07/30/17 09:02 (Lipitor) 40 mg HS PO 07/29/17 21:00 07/29/17 22:36 (Lopressor) 50 mg BID PO 07/29/17 21:00 07/30/17 09:02 (Flomax) 0.4 mg HS PO 07/29/17 21:00 07/29/17 22:36 Vital Signs / I&O Vital Signs Date Time Temp Pulse Resp B/P (MAP) Pulse Ox O2 Delivery O2 Flow Rate FiO2 07/30/17 10:08 67 07/30/17 09:00 76 07/30/17 08:20 97.9 69 20 151/94 (113) 99 07/30/17 08:00 64 07/30/17 07:00 82 07/30/17 04:00 98.0 69 20 156/79 (104) 97 07/30/17 03:00 66 07/30/17 00:00 98.4 70 20 146/80 (102) 97 07/29/17 20:45 98.7 80 22 137/69 (91) 96 07/29/17 18:31 98.4 74 20 138/79 (98) 95 07/29/17 17:26 97 Room Air 07/29/17 14:08 98.2 69 22 128/64 (85) 94 Physical Exam GENERAL: Well developed, well nourished. No acute distress. HEENT: Jugular venous pressure is normal. CHEST: Lungs clear to auscultation bilaterally. Unlabored respiratory effort. CARDIAC: Regular rate and rhythm without S3, S4, or murmur. ABDOMEN: Soft, nontender, no hepatosplenomegaly. Bowel sounds present. EXTREMITIES: No clubbing, cyanosis, or edema. Normal right radial artery pulse. Laboratory Laboratory Tests Test 07/29/17 13:50 07/30/17 05:11 White Blood Count 7.2 TH/MM3 7.8 TH/MM3 Red Blood Count 5.56 MIL/MM3 5.45 MIL/MM3 Hemoglobin 15.3 GM/DL 15.3 GM/DL Hematocrit 44.9 % 44.2 % Mean Corpuscular Volume 80.8 FL 81.1 FL Mean Corpuscular Hemoglobin 27.6 PG 28.0 PG Mean Corpuscular Hemoglobin Concent 34.2 % 34.5 % Red Cell Distribution Width 14.0 % 13.9 % Platelet Count 325 TH/MM3 306 TH/MM3 Mean Platelet Volume 7.5 FL 7.4 FL Neutrophils (%) (Auto) 57.5 % 66.2 % Lymphocytes (%) (Auto) 31.6 % 22.8 % Monocytes (%) (Auto) 8.1 % 8.8 % Eosinophils (%) (Auto) 1.8 % 1.4 % Basophils (%) (Auto) 1.0 % 0.8 % Neutrophils # (Auto) 4.1 TH/MM3 5.2 TH/MM3 Lymphocytes # (Auto) 2.3 TH/MM3 1.8 TH/MM3 Monocytes # (Auto) 0.6 TH/MM3 0.7 TH/MM3 Eosinophils # (Auto) 0.1 TH/MM3 0.1 TH/MM3 Basophils # (Auto) 0.1 TH/MM3 0.1 TH/MM3 CBC Comment DIFF FINAL DIFF FINAL Differential Comment Prothrombin Time 10.2 SEC Prothromb Time International Ratio 1.0 RATIO Activated Partial Thromboplast Time 29.9 SEC Blood Urea Nitrogen 17 MG/DL 19 MG/DL Creatinine 0.93 MG/DL 0.89 MG/DL Random Glucose 94 MG/DL 87 MG/DL Calcium Level 8.6 MG/DL 9.0 MG/DL Sodium Level 136 MEQ/L 136 MEQ/L Potassium Level 4.4 MEQ/L 3.8 MEQ/L Chloride Level 104 MEQ/L 103 MEQ/L Carbon Dioxide Level 24.3 MEQ/L 24.3 MEQ/L Anion Gap 8 MEQ/L 9 MEQ/L Estimat Glomerular Filtration Rate 79 ML/MIN 83 ML/MIN Total Creatine Kinase 47 U/L Triglycerides Level 115 MG/DL Cholesterol Level 202 MG/DL LDL Cholesterol 141 MG/DL HDL Cholesterol 37.6 MG/DL Cholesterol/HDL Ratio 5.37 RATIO Assessment and Plan Problem List: (1) CAD (coronary artery disease) ICD Codes: I25.10 - Atherosclerotic heart disease of iroquois coronary artery without angina pectoris Status: Chronic Plan: Stable overnight. No recurrent angina s/p stent proximal left circumflex. To discharge home on Brilinta, baby aspirin. 3-4 week f/u. Ad sneha activity. (2) Hyperlipidemia ICD Codes: E78.5 - Hyperlipidemia, unspecified Status: Chronic Plan: Very suboptimal lipid profile. Rec atorvastatin 40 mg qhs, recheck lipid profile in 6-8 weeks. (3) Hypertension ICD Codes: I10 - Essential (primary) hypertension Status: Chronic Plan: Fluctuating BP's. Will continue metoprolol for now, f/u as outpatient. Code Status full code Discussed Condition With patient and his Problem Qualifiers (1) CAD (coronary artery disease): Qualified Codes: I25.110 - Atherosclerotic heart disease of iroquois coronary artery with unstable angina pectoris (2) Hyperlipidemia: Qualified Codes: E78.2 - Mixed hyperlipidemia (3) Hypertension: Qualified Codes: I10 - Essential (primary) hypertension Kris Mcguire MD Jul 30, 2017 10:56
== END 2017-07-30 11:43 | disposition home or self-care (01) ==
LOC: HDIC 13:37 → HDOC 13:37 → HCIS 18:41 → HDOC 07-30 11:43
PROVIDERS: ATTEND Internal Medicine Cardiovascular Disease
DX: I25.110 Atherosclerotic heart disease of native coronary artery with unstable angina pectoris (principal); I10 Essential (primary) hypertension; E78.2 Mixed hyperlipidemia; Z79.82 Long term (current) use of aspirin
CPT/HCPCS: 80048; 80061; 82550; 85002; 85025; 85610; 85730; 92928; 93005; 93458; 99152; 99153; C1725; C1769; C1874; C1887; C1893; J1644; J2250; J3010; J3246; Q9967